=== PATIENT | male | born 1940 | race Caucasian/White ===

== ENCOUNTER → 2017-08-08 | Outpatient (CLI) | payer MEDICARE, OTHER ==
[~2017-08-08] MED LIST: BISOPROLOL-HCT1 EAC1 PO; CYMBALTA30 MG PO; LISINOPRIL10 MG PO; NIFEDIPINE ER30 M1 PO; NORCO 10-325 T1 EACH PO; NORCO 7.5-3251 EACH PO; NOVOLIN 70100 UNITS/ SC
--- NOTE | 2017-08-08 11:33 | Diagnostic Imaging Report ---
EXAM: CT Abdomen and Pelvis WITHOUT contrast INDICATION: \[id number] \S\0750 \S\Personal history of urinary calculi COMPARISON: None. TECHNIQUE: Abdomen and pelvis were scanned utilizing a multidetector helical scanner from the lung base to the pubic symphysis without administration of IV contrast. Absence of intravenous contrast decreases sensitivity for detection of focal lesions and vascular pathology. Coronal and sagittal reformations were obtained. Renal stone protocol was performed. IV CONTRAST: None ORAL CONTRAST: Water COMPLICATIONS: None RADIATION DOSE: Total DLP: 998.89 mGy*cm Estimated effective dose: (DLP x 0.015 x size factor) mSv CTDIvol has been reviewed. It is below the limits set by the Radiation Protocol Committee (RPC). FINDINGS: LINES and TUBES: None. LOWER THORAX: Partially imaged atherosclerotic calcification of coronary arteries with possible stents in place.. Dependent atelectasis. HEPATOBILIARY: 1.7 cm right hepatic lobe hypodensity (series 3, image 51) cannot be fully characterized on this unenhanced study. Common bile duct is distended up to 1.4 cm. GALLBLADDER: Cholelithiasis. No wall thickening. SPLEEN: Splenomegaly. PANCREAS: No focal masses or ductal dilatation. ADRENALS: No adrenal nodules KIDNEYS/URETERS: Atrophic kidneys, left more than right. No hydronephrosis. No stones. GI TRACT: No abnormal distention, wall thickening, or evidence of bowel obstruction. There are diverticula within the colon without evidence of diverticulitis. Appendix is normal, extending to the right inguinal hernia. PELVIC ORGANS/BLADDER: Unremarkable. LYMPH NODES: Prominent periportal lymph nodes measuring up to 1.2 cm (series 3, image 50). There are also prominent external iliac lymph nodes, measuring up to 1.5 cm. VESSELS: Unremarkable. PERITONEUM / RETROPERITONEUM: No free air or fluid. BONES: Right hip arthroplasty. Posterior L4-L5 fusion. Advanced degenerative changes of lumbar spine. SOFT TISSUES: Bilateral fat-containing inguinal hernia. Additionally the right inguinal hernia contains appendix. IMPRESSION: 1. No nephrolithiasis or evidence of obstructive urolithiasis. 2. Atrophic kidneys, left more than right. 3. Bilateral inguinal hernia, containing fat on the left side, fat and appendix on the right side. 4. Prominent nonspecific periportal and external iliac lymph nodes. 5. Cholelithiasis without evidence of cholecystitis. There is also distention of common bile duct. Patient may benefit from nonemergent MRCP for further evaluation. Signed by: Dr. Zeus Villeda MD on 08/08/2017 11:29 AM
== END ==
LOC: CT 07:35
PROVIDERS: ATTEND Urology
DX: Z87.442 Personal history of urinary calculi (principal)
CPT/HCPCS: 74176

== ENCOUNTER → 2019-02-26 | Day surgery (SDC) | payer MEDICARE, OTHER ==
[2019-02-23 12:45] LABS: BASOPHILS % 0.9 % (0.0-1.0); EOSINOPHILS # (AUTO) 0.3 (0.0-0.4); EOSINOPHILS % 7.3 % (0.0-6.0); HEMATOCRIT 38.6 % (38.2-49.6); HEMOGLOBIN 12.7 g/dL (14.0-18.0); LYMPHOCYTES # (AUTO) 1.6 (1.0-3.2); LYMPHOCYTES % 36.6 % (18.0-39.1); MEAN CORPUSCULAR HEMOGLOBIN 31.8 pg (28-32); MEAN CORPUSCULAR HGB CONC 32.9 g/dL (31-35); MEAN CORPUSCULAR VOLUME 96.5 fL (81-99); MONOCYTES # (AUTO) 0.3 (0.2-0.8); MONOCYTES % 7.5 % (4.4-11.3); NEUTROPHILS % 47.5 % (38.7-80.0); PLATELET COUNT 217 x10e3/uL (140-360); RED CELL DISTRIBUTION WIDTH 14.4 % (11.7-14.4)
[2019-02-23 12:59] LABS: ANION GAP 12.5 mmol/L (8-16); CALCIUM 9.1 mg/dL (8.4-10.2); CREATININE, SERUM 1.58 mg/dL (0.72-1.25); POTASSIUM 4.5 mmol/L (3.5-5.1)
--- NOTE | 2019-02-23 14:21 | Diagnostic Imaging Report ---
EXAMINATION: CHEST 2 VIEWS INDICATION: Pre-operative COMPARISON: None FINDINGS: The patient is left rotated. LINES/TUBES:None LUNGS:The lungs are well-inflated. No focal consolidation or pulmonary edema. PLEURA:No pleural effusion or pneumothorax. MEDIASTINUM:The cardiomediastinal silhouette is mildly enlarged. Atherosclerotic calcifications of the thoracic aorta. BONES/SOFT TISSUES:No acute osseous injury. ABDOMEN:No free air under the diaphragm. IMPRESSION: Mild cardiomegaly. No focal pneumonia or pulmonary edema. Signed by: Hardik Orellana MD on 02/23/2019 2:17 PM
[~2019-02-26] MED LIST changes: +ARICEPT5 MG PO; +ASPIRIN81 MG PO; +B&O 60MG R/S 60 MG SUPP PR ONE; +BUPIVACAINE 0.25% 30ML SDV INJ ONE; +CEFAZOLIN SOD 1 GM/NS 50ML 50 ML IV ONE; +DEXAMETHASONE SOD PHOS INJ 4 MG/ML VIAL ONE; +FENTANYL CITRATE/PF 100MCG/2 ML INJ ONE; +FLOMAX0.4 MG PO; +GABAPENTIN300 MG PO; +IOPAMIDOL 300MG/ML 50ML INFUS..BTL IV ONE; +LIDOCAINE HCL 2% LOCAL INJ 5 ML SDV VIAL INJ ONE; +LOSARTAN POTAS100 MG PO; +MULTIVITAMINS1 EAC7 PO; +NEOSTIGMINE 1 MG/ML 10ML VIAL ONE; +ONDANSETRON HCL INJ 2MG/ML 2ML 2 MG/ML VIAL ONE; +PRAVASTATIN SOD20 MG PO; +PROPOFOL IV EMULSION 10 MG/ML 20 ML VIAL ONE; +SEVOFLURANE INHAL SOLN 250 ML PEN BTL ONE
--- OUTSIDE RECORDS SUMMARY | 2019-02-26 08:42 | XMS REPORT ---
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 Allergies, Adverse Reactions, Alerts This patient has no known allergies or adverse reactions. Medications This patient has no known medications. Encounters Start Date/Time End Date/Time Encounter Type Admission Type Attending Clinicians Care Facility Care Department Encounter ID 2018-11-11 11:32:[address] [facility] [id number] 2019-02-07 14:35:00 2019-02-07 14:35:00 Outpatient [id number] Results Test Description Test Time Test Comments Text Results Atomic Results Result Comments CHEST 2 VIEWS 2019-02-23 14:16:00 [place] [address] Patient Name: ANNIKA ONEAL MR #: [id number] : 1940 Age/Sex: 78/M Req #: [id number] Adm Physician: Ordered by: SHANA CASTILLO MD Report #: [id number] Location: OR Room/Bed: Procedure: [id number] DX/CHEST 2 VIEWS Exam Date: 02/23/19 Exam Time: 1320 REPORT STATUS: Signed EXAMINATION: CHEST 2 VIEWS INDICATION: Pre-operative COMPARISON: None FINDINGS: The patient is left rotated. LINES/TUBES:None LUNGS:The lungs are well-inflated. No focal consolidation or pulmonary edema. PLEURA:No pleural effusion or pneumothorax. MEDIASTINUM:The cardiomediastinal silhouette is mildly enlarged. Atherosclerotic calcifications of the thoracic aorta. BONES/SOFT TISSUES:No acute osseous injury. ABDOMEN:No free air under the diaphragm. IMPRESSION: Mild cardiomegaly. No focal pneumonia or pulmonary edema. Signed by: Griffin Morrison MD on 02/23/2019 2:17 PM Dictated By: GRIFFIN MORRISON MD 16 Transcribed By: TIERA on 02/23/191416 COPY TO: SHANA CASTILLO MD CT ABDOMEN/PELVIS WO [place] [address] Patient Name: ANNIKA ONEAL MR #: [id number] : 1940 Age/Sex: 76/M Req #: [id number] Adm Physician: Ordered by: SHANA CASTILLO MD Report #: [id number] Location: CT Room/Bed: Procedure: [id number] CT/CT ABDOMEN/PELVIS WO Exam Date: 08/08/17 Exam Time: 0750 REPORT STATUS: Signed EXAM: CT Abdomen and Pelvis WITHOUT contrast INDICATION: COMPARISON: None. TECHNIQUE: Abdomen and pelvis were scanned utilizing a multidetector helical scanner from the lung base to the pubic symphysis without administration of IV contrast. Absence of intravenous contrast decreases sensitivity for detection of focal lesions and vascular pathology. Coronal and sagittal reformations were obtained. Renal stone protocol was performed. IV CONTRAST: None ORAL CONTRAST: Water COMPLICATIONS: None RADIATION DOSE: Total DLP: 998.89 mGy*cm Estimated effective dose: (DLP x 0.015 x size factor) mSv CTDIvol has been reviewed. It is below the limits set by the Radiation Protocol Committee (RPC). FINDINGS: LINES and TUBES: None. LOWER THORAX: Partially imaged atherosclerotic calcification of coronary arteries with possible stents in place.. Dependent atelectasis. HEPATOBILIARY: 1.7 cm right hepatic lobe hypodensity (series 3, image 51) cannot be fully characterized on this unenhanced study. Common bile duct is distended up to 1.4 cm. GALLBLADDER: Cholelithiasis. No wall thickening. SPLEEN: Splenomegaly. PANCREAS: No focal masses or ductal dilatation. ADRENALS: No adrenal nodules KIDNEYS/URETERS: Atrophic kidneys, left more than right. No hydronephrosis. No stones. GI TRACT: No abnormal distention, wall thickening, or evidence of bowel obstruction. There are diverticula within the colon without evidence of diverticulitis. Appendix is normal, extending to the right inguinal hernia. PELVIC ORGANS/BLADDER: Unremarkable. LYMPH NODES: Prominent periportal lymph nodes measuring up to 1.2 cm (series 3, image 50). There are also prominent external iliac lymph nodes, measuring up to 1.5 cm. VESSELS: Unremarkable. PERITONEUM / RETROPERITONEUM: No free air or fluid. BONES: Right hip arthroplasty. Posterior L4-L5 fusion. Advanced degenerative changes of lumbar spine. SOFT TISSUES: Bilateral fat-containing inguinal hernia. Additionally the right inguinal hernia contains appendix. IMPRESSION: 1. No nephrolithiasis or ev idence of obstructive urolithiasis. 2. Atrophic kidneys, left more than right. 3. Bilateral inguinal hernia, containing fat on the left side, fat and appendix on the right side. 4. Prominent nonspecific periportal and external iliac lymph nodes. 5. Cholelithiasis without evidence of cholecystitis. There is also distention of common bile duct. Patient may benefit from nonemergent MRCP for further evaluation. Signed by: Dr. Zeus Recio MD on 08/08/2017 11:29 AM Dictated By: ZEUS RECIO MD 28 Transcribed By: MEGHAN HARRY on 08/08/171128 COPY TO: SHANA CASTILLO MD
[2019-02-26 15:20] VITALS: BP 157/75
--- NOTE | 2019-05-08 23:21 | Operative Report ---
DATE OF PROCEDURE: 02/26/2019 SURGEON: Canelo Novoa MD PREOPERATIVE DIAGNOSES: 1. Phimosis. 2. Urinary tract infections. 3. Chronic renal insufficiency. POSTOPERATIVE DIAGNOSES: 1. Phimosis. 2. Urinary tract infections. 3. Chronic renal insufficiency. OPERATIONS PERFORMED: 1. Circumcision. 2. Cystourethroscopy with bilateral ureteral catheterization and retrograde ureteropyelography (separate procedure performed for the urinary tract infections and renal insufficiency). 3. Interpretation of retrograde ureteropyelography. 4. Regional nerve block (separate procedure performed for postoperative pain control and not required for the actual performance of surgery, which was done under general anesthesia). ANESTHESIA: General. COMPLICATIONS: None. CLINICAL SUMMARY: Bulmaro Akins is a 78-year-old man with the above preoperative diagnoses. He is brought for the above procedures. He is aware of the risks of bleeding, infection, injury to adjacent structures, need for additional procedures and elected to proceed. OPERATIVE PROCEDURE IN DETAIL: Informed consent was verified. Bulmaro Akins was properly identified, taken to the operating room, placed on the operating table in supine position. Anesthesia was uneventfully begun. The patient's genitalia were then shaved, prepared, and draped in usual sterile fashion. Marcaine without epinephrine was then utilized to infiltrate subcutaneously circumferentially the base of the penis as well as the region of the dorsal penile nerves. This was done for postoperative pain control and not required for the actual performance of surgery, which was done under general anesthesia. A circumferential incision was then made overlying the youngblood of the glans penis. The foreskin was fully retracted and secondary incision was made approximately 4-5 mm away from the youngblood of the glans penis along the inner preputial skin. A sleeve surgical incision was performed. The foreskin was removed. Pinpoint electrocautery was utilized to achieve hemostasis. The patient's incision was then approximated with 4-0 chromic suture in running fashion with an excellent cosmetic result. The patient was then carefully gently repositioned in dorsal lithotomy position with all pressure points well padded. His genitalia were prepared and draped in usual sterile fashion. The cystoscope sheath with the visual obturator in place was atraumatically inserted in the patient's urethra. It was guided on a normal distal urethra to the bulbar region where there was a wide caliber non-clinically significant stricture. We went through the normal sphincteric region through the prostate bed, which was significant for being a trilobar prostatic hypertrophy with kissing lateral lobes and a small median lobe that was not obstructing. Panendoscopy of the bladder revealed small cellules versus diverticula consistent with heavy trabeculations. There were no suspicious mucosal lesions. There were no tumors and there were no stones. An 8-[place] catheter was used to cannulate each ureter and retrograde ureteral pyelograms were performed. Interpretation of retrograde ureteropyelography contrast was instilled in retrograde fashion bilaterally. There were no tumors no stones, and no diverticula. Unobstructed drainage was observed bilaterally fluoroscopically. There was hardware present for prior orthopedic and back surgeries. J hooking was noted in both ureters, but unobstructed drainage was observed bilaterally fluoroscopically. The patient's bladder was drained. Cystoscope was withdrawn. Dressings were applied of bacitracin ointment followed by Xeroform gauze, followed by loose-fitting Hakeem. The patient was uneventfully reversed from anesthesia and taken to recovery room in stable condition. Estimated blood loss was minimal. A belladonna and opium suppository was placed revealing 40 g prostate that is smooth, nonfluctuant without any nodules. The patient was then uneventfully reversed from anesthesia and taken to recovery room in stable condition. Explicit postop instructions were given. We will follow the patient up in the office. Canelo Novoa MD [place]/MODL /[id number] cc: Ady Marc MD
== END | disposition home or self-care (01) ==
LOC: OR 08:28
PROVIDERS: ATTEND Urology
DX: N47.1 Phimosis (principal); Z01.810 Encounter for preprocedural cardiovascular examination; Z01.812 Encounter for preprocedural laboratory examination; Z01.811 Encounter for preprocedural respiratory examination; N18.9 Chronic kidney disease, unspecified; I25.10 Atherosclerotic heart disease of native coronary artery without angina pectoris; Z95.5 Presence of coronary angioplasty implant and graft; E78.5 Hyperlipidemia, unspecified; Z96.641 Presence of right artificial hip joint; Z96.651 Presence of right artificial knee joint; E66.9 Obesity, unspecified; Z86.73 Personal history of transient ischemic attack (TIA), and cerebral infarction without residual deficits; N39.0 Urinary tract infection, site not specified; R32 Unspecified urinary incontinence; E11.22 Type 2 diabetes mellitus with diabetic chronic kidney disease; I12.9 Hypertensive chronic kidney disease with stage 1 through stage 4 chronic kidney disease, or unspecified chronic kidney disease; N47.7 Other inflammatory diseases of prepuce; Z87.440 Personal history of urinary (tract) infections
CPT/HCPCS: 36415 ×2; 52005; 54161; 71046; 74420; 80048; 82948; 85025; 88304; 93005; J0690; J1100; J2001; J2405; J2704; J2710; J3010; Q9967